=== PATIENT | female | born 1970 | race Caucasian/White ===

== ENCOUNTER → 2019-03-22 | Outpatient (CLI) | payer OTHER ==
--- NOTE | 2019-03-22 11:41 | PCVCIMAG ---
APPROVED REPORT Study performed: 03/22/2019 10:42:51 Exam: Stress Echocardiogram Indication: Dyspnea , Hyperlipidemia Patient Location: Echo lab Stress Nurse: Shanel Wolf RN Room #: 2 Status: routine Ht: 5 ft 2 in HR: 76 bpm BP: 156/92 mmHg Rhythm: NSR Medical History Medical History: Hyperlipidemia Cardiac Risk Factors: Hyperlipidemia, FHX of CAD,obesity Previous Cardiac Procedures: none Exercise History: Indeterminate Procedure The patient underwent an Exercise Stress Test using the Roney Protocol. Blood pressure, heart rate, and EKG were monitored. An Echocardiogram was performed by earth science technician in four stages in quad fashion. At peak stress, four selected images were obtained and placed side by side with resting images for comparison. Stress Test Details Stress Test: Exercise stress testing was performed using a Roney protocol. HR Resting HR: 76 bpmMax Heart Rate (APMHR): 171 bpm Max HR Achieved: 142 bpmTarget HR (85% APMHR): 145 bpm % of APMHR: 83 Recovery HR: 84 bpm HR response to stress: Normal HR response to stress BP Resting BP: 156/92 mmHg Max BP: 174/70 mmHg Recovery BP: 142/74 mmHg BP response to stress: Normal blood pressure response to stress. ECG Resting ECG: Sinus Rhythm Stress ECG: Sinus Rhythm ST Change: Non-ischemic Maximum ST Deviation: -0.85 mm Arrhythmia: occ PVC Recovery ECG: Sinus Rhythm Recovery ST Change: Non-ischemic Recovery ST Deviation: -0.45 mm Recovery Arrhythmia: occ PVC, Clinical Reason for Termination: Maximal effort Stress Symptoms: fatigue,dyspnea- pt has asthma Exercise duration: 6 min 18 sec Highest Stage Achieved: Stage 3: 3.4 mph at 14% grade. Exercise capacity: 7.7 METs Overall Exercise Capacity for Age: Poor Scale: Sedentary Angina Score: None No complications. Stress ECG Conclusion Thorpe Treadmill Score is 10.3 which is Low risk. Pre-Stress Echo The resting Echocardiogram showed normal left ventricular contractility with an estimated Ejection Fraction of about 55-60%. Normal wall motion in all segments on baseline images. Post-Stress Echo The stress Echocardiogram showed normal left ventricular contractility with an estimated Ejection Fraction of about 65-70%. Normal augmentation of wall motion in all segments on post stress images. Clinical No clinical or ECG evidence for ischemia. Conclusion Clinical Response: Non-ischemic Exercise Capacity: Below Average Stress ECG Response: Non-ischemic Stress Echo Images: Non-ischemic No echocardiographic evidence for exercise induced ischemia. No clinical, EKG or echocardiographic evidence for ischemia. Normal stress echocardiogram with submaximal exercise stress. Normal color doppler. No stenosis or regurgitation seen in the mitral,aortic,tricuspid or pulmonic valves. No prior study available for comparison. <Conclusion> No echocardiographic evidence for exercise induced ischemia. No clinical, EKG or echocardiographic evidence for ischemia. Normal stress echocardiogram with submaximal exercise stress. Normal color doppler. No stenosis or regurgitation seen in the mitral,aortic,tricuspid or pulmonic valves.
== END | disposition home or self-care (01) ==
LOC: PCVCIMAG 10:14
PROVIDERS: ATTEND Internal Medicine Cardiovascular Disease
DX: E78.5 Hyperlipidemia, unspecified (principal)
CPT/HCPCS: 93325; 93351

== ENCOUNTER 2019-07-04 10:14 | Emergency (ER) | payer OTHER ==
[~2019-07-04] VITALS: Ht 157.5 cm; Wt 136.0 kg
[2019-07-04 10:26] VITALS: BP 160/94
--- NOTE | 2019-07-04 10:48 | PHYS DOC ---
General Adult EDM: Chief Complaint: LACERATION/AVULSION HPI: HPI: Patient is a 48 year old female who presents to the ED today with right index finger laceration, patient cut herself on a piece of wood. Patient is right- handed. Review of Systems: Review of Systems: Constitutional: Denies fever or chills. [] Musculoskeletal: Denies back pain or joint pain. [] Integument: Reports right index finger laceration Neurologic: Denies headache, focal weakness or sensory changes. [] Psychiatric: Denies depression or anxiety. [] Heart Score: Risk Factors: Risk Factors: DM, Current or recent (<one month) smoker, HTN, HLP, family history of CAD, obesity. Risk Scores: Score 0 - 3: 2.5% MACE over next 6 weeks - Discharge Home Score 4 - 6: 20.3% MACE over next 6 weeks - Admit for Clinical Observation Score 7 - 10: 72.7% MACE over next 6 weeks - Early Invasive Strategies Physical Exam: PE: Constitutional: Well developed, well nourished, no acute distress, non-toxic appearance. [] Skin: Warm, dry, right index finger at the PIP joint dorsal aspect with a superficial laceration approximately 0.5 cm, there is no obvious tendon involvement. Patient able to flex and extend the finger at the MIP PIP and DIP joints. Adequate radial sensation to the right index finger. +2 right radial pulse. Back: No tenderness, no CVA tenderness. [] Extremities: No tenderness, no cyanosis, no clubbing, ROM intact, no edema. [] Neurologic: Alert and oriented X 3, normal motor function, normal sensory function, no focal deficits noted. [] Psychologic: Affect normal, judgement normal, mood normal. [] EKG: EKG: [] Radiology/Procedures: Radiology/Procedures: Indication: [] Procedure: The patient was placed in the appropriate position. The area was then cleaned with 100 mL of normal saline. The laceration was closed with Dermabond and covered with Steri-Strips and a Band-Aid. Total repaired wound length: Approximately 0.5 Dimick needed [id number] and Tuesday myself cm Other Items: other The patient tolerated the procedure well Complications: none Course & Med Decision Making: Course & Med Decision Making Labs and Imaging studies reviewed. (See chart for details) This is a 48-year-old female patient presenting to the ED today with right index finger laceration, laceration was closed by me with Dermabond as noted in procedures. Tetanus up-to-date, wound care instructions and return precautions provided Cristine Disclaimer: Cristine Disclaimer: This electronic medical record was generated, in whole or in part, using a voice recognition dictation system. Departure Departure Impression: Primary Impression: Finger laceration Qualified Codes: S61.210A - Laceration without foreign body of right index finger without damage to nail, initial encounter Disposition: HOME, SELF-CARE Condition: STABLE Referrals: JEAN CARLOS MCCOY (PCP) follow up with your doctor as needed Patient Instructions: Fingertip Laceration Additional Instructions: Please keep the area clean and dry. Apply neosporin twice a day to the area for 7 days once the Steri-Strips fall off. Monitor the area for signs of infection including but not limited to increased redness, warmth, yellow drainage from the area and follow up with your doctor if they occur. ROSALINE GUILLEN TEST EQUIPMENT MECHANIC Jul 04, 2019 10:48
== END 2019-07-04 10:55 | disposition home or self-care (01) ==
LOC: ER 10:14
DX: S61.210A Laceration without foreign body of right index finger without damage to nail, initial encounter (principal); Y29.XXXA Contact with blunt object, undetermined intent, initial encounter; Y93.89 Activity, other specified; Y92.89 Other specified places as the place of occurrence of the external cause; Y99.8 Other external cause status
CPT/HCPCS: 12001; 99282